=== PATIENT | female | born 1950 | race Caucasian/White ===

== ENCOUNTER 2020-08-05 13:44 | Emergency (ER) | payer MEDICARE, SELFPAY ==
[2020-08-05 13:51] VITALS: BP 142/76; PULSE 83; RESP 16; TEMP 36.2; O2SAT 97
--- NOTE | 2020-08-05 14:19 | ED.EYEPROB ---
HPI - Eye Problem General Chief complaint: Eye Problems Stated complaint: Irratated Eye Time Seen by Provider: 08/05/20 14:25 Source: patient Mode of arrival: ambulatory Limitations: no limitations History of Present Illness HPI Narrative: patient woke up this am with itching and irritation to her left eye. no vision problems no injury. patient states she has not worn her contacts for over one week. chief complaint: eye redness Location: left eye Related Data Home Medications Medication Instructions Recorded Confirmed No Home Medications 08/05/20 08/05/20 Allergies Allergy/AdvReac Type Severity Reaction Status Date / Time Sulfa (Sulfonamide Allergy Unknown Unknown Verified 08/05/20 14:23 Antibiotics) Review of Systems Review of Systems: Narrative: CONSTITUTIONAL: Denies fever, chills, or sweats. EYES: Denies visual changes, redness, or discharge. ENT: Denies rhinorrhea, congestion, sore throat, or otalgia.redness and itching to left ye eye matted shut this am CARDIOVASCULAR: Denies chest pain, palpitations, or edema. RESPIRATORY: Denies cough or dyspnea. GASTROINTESTINAL: Denies abdominal pain, nausea, vomiting, or diarrhea. GENITOURINARY: Denies dysuria or hematuria. SKIN: Denies rash or itching. MUSCULOSKELETAL: Denies back pain, joint pain, or myalgia. NEUROLOGIC: Denies headache, numbness, or weakness. PSYCHIATRIC: Denies anxiety or depression. Allergic/Immunologic: Comments: At time of signature, agree with nursing past medical, surgical, social and family history. There is no relevant family history pertinent to the presenting complaint Exam Narrative: Exam Narrative: GENERAL: Well-appearing, well-nourished, and in no acute distress. HEAD: Normocephalic, atraumatic. EYES: PERRLA and EOMI. ENT: Nares clear, no rhinorrhea or epistaxis. Mucous membranes moist. NECK: Supple. CHEST: Clear to auscultation. No respiratory distress. HEART: Regular rate and rhythm. No murmur heard. Normal peripheral pulses. ABDOMEN: Soft, nontender, nondistended, normal active bowel sounds. EXTREMITIES: Normal range of motion. No edema. SKIN: Warm, dry, no rash. NEURO: No focal deficits. Alert and oriented x3. [place] Coma Scale Eye Opening: Spontaneous 4 [place] Coma Scale Motor: Obeys Commands 6 [place] Coma Scale Verbal: Oriented 5 [place] Coma Scale Total 15 Eyes: Eyelids: eyelids normal Conjunctivae: conjunctivae normal and conjunctival abnormality (conjunctivitis left eye) left Sclera: sclerae normal Cornea: corneas normal Pupils: Equal, round and reactive pupils present EOM: EOMs intact bilaterally Course Vital Signs Vital signs: Vital Signs Temperature 36.2 C L 08/05/20 13:51 Pulse Rate 83 08/05/20 13:51 Respiratory Rate 16 08/05/20 13:51 Blood Pressure 142/76 H 08/05/20 13:51 Pulse Oximetry 97 08/05/20 13:51 Temperature 36.2 C L 08/05/20 13:51 Pulse Rate 83 08/05/20 13:51 Respiratory Rate 16 08/05/20 13:51 Blood Pressure 142/76 H 08/05/20 13:51 Pulse Oximetry 97 08/05/20 13:51 Please SELVIN schedule a followup visit with your personal physician for further evaluation and treatment. Including recheck and discussion of your blood pressure. If your symptoms persist, change or worsen significantly before you can contact your personal physician then please, without delay, go to the emergency department for further evaluation Critical dx considered and discussed with pt. Educated patient on red flag s/s and to go to ED if s/s occur. Discussed with pt when to return to [facility] or primary care provider. Pt gave verbal undertstanding, all questions were answered, and pt was agreeable to plan MDM - Eye Problem Differential Diagnosis Differential diagnosis: Likely corneal abrasion, conjunctivitis, acute iritis, hyphema, periorbital cellulitis, subconjunctival hemorrhage, glaucoma and corneal ulcer Critical Care Time Critical Care Time Critical Care Time: No Discharge
== END 2020-08-05 14:25 | disposition home or self-care (01) ==
PROVIDERS: Emergency Provider Nurse Practitioner Family
DX: H10.9 Unspecified conjunctivitis (principal)
CPT/HCPCS: 99213; G0463